=== PATIENT | female | born 1985 | race Caucasian/White ===

== ENCOUNTER 2017-10-31 09:42 | Emergency (ER) | payer OTHER ==
[~2017-10-31] VITALS: Ht 294.6 cm; Wt 81.6 kg
[~2017-10-31 09:42] MED LIST: ALDOMET250 MG; ALDOMET250 MG PO; CODE1TAB37 PO; Mylicon 125MG PO; PRENATAL + DHA1 EAC1; SENNA S TABLET1 EACH PO
[2017-10-31] MEDS ORDERED: ALTACE5 MG (10:15)
[2017-10-31] MEDS ORDERED: MEDROLPACK PO (13:29)
== END 2017-10-31 14:55 | disposition home or self-care (01) ==
LOC: ER 09:42
DX: R20.2 Paresthesia of skin (principal)

== ENCOUNTER 2019-03-27 17:58 | Emergency (ER) | payer OTHER ==
[~2019-03-27] VITALS: Ht 165.1 cm; Wt 95.3 kg
[~2019-03-27 17:58] MED LIST changes: +ALTACE5 MG; +MEDROLPACK PO
== END 2019-03-27 21:06 | disposition home or self-care (01) ==
LOC: ER 17:58
DX: R10.32 Left lower quadrant pain (principal)

== ENCOUNTER 2020-06-28 13:50 | Outpatient (CLI) | payer OTHER | END 2020-06-28 13:56 | disposition home or self-care (01) | LOC: MAMO-SONO 13:50 | PROVIDERS: ATTEND Obstetrics & Gynecology | DX: N63.0 Unspecified lump in unspecified breast (principal); N64.59 Other signs and symptoms in breast; N64.89 Other specified disorders of breast; N94.0 Mittelschmerz; R10.2 Pelvic and perineal pain; N94.89 Other specified conditions associated with female genital organs and menstrual cycle ==

== ENCOUNTER 2021-07-30 09:28 | Outpatient (CLI) | payer OTHER | END 2021-07-30 09:48 | disposition home or self-care (01) | LOC: SONOGRAMA 09:28 | DX: E04.2 Nontoxic multinodular goiter (principal) ==